=== PATIENT | female | born 1960 | race Caucasian/White ===

== ENCOUNTER → 2016-10-02 16:40 | Outpatient (CLI) | payer MEDICARE | END | disposition home or self-care (01) | LOC: D.MAMMO 09:15 | DX: Z12.31 Encounter for screening mammogram for malignant neoplasm of breast (principal) ==

== ENCOUNTER 2018-02-04 22:23 | Emergency (ER) | payer MEDICARE ==
[~2018-02-04] VITALS: Ht 167.6 cm; Wt 66.2 kg
[2018-02-04 22:32] VITALS: Ht 167.6 cm; Wt 66.2 kg
[2018-02-04] MEDS ORDERED: NEURONTIN 300300 MG (22:34)
[2018-02-04] MEDS ORDERED: ZANAFLEX4 MG PO (22:34)
[2018-02-04] MEDS ORDERED: CYMBALTA20 MG (22:34)
[2018-02-04] MEDS ORDERED: VALIUM 2 MG TAB2 MG (22:35)
[2018-02-04] MEDS ORDERED: BUTRANS1 EAC1 TRANSDERM (22:35)
[2018-02-05 00:41] VITALS: BP 151/78
== END 2018-02-05 00:23 | disposition home or self-care (01) ==
LOC: D.ER 22:23
DX: M25.551 Pain in right hip (principal); M25.561 Pain in right knee; W19.XXXA Unspecified fall, initial encounter; Y93.89 Activity, other specified; Y92.019 Unspecified place in single-family (private) house as the place of occurrence of the external cause

== ENCOUNTER 2020-12-11 11:52 | Emergency (ER) | payer MEDICARE ==
[~2020-12-11] VITALS: Ht 167.6 cm; Wt 77.3 kg
[~2020-12-11 11:52] MED LIST: BUTRANS1 EAC1 TRANSDERM; CYMBALTA20 MG; NEURONTIN 300300 MG; VALIUM 2 MG TAB2 MG; ZANAFLEX4 MG PO
[2020-12-11 12:07] VITALS: BP 111/74; Ht 167.6 cm; Wt 77.3 kg
[2020-12-11] MEDS ORDERED: MOTRIN600 MG PO (12:10)
[2020-12-11] MEDS ORDERED: ACETAMINOPHEN500 M1 PO (13:46)
[2020-12-11] MEDS ORDERED: CYCLOBENZAPRINE10 MG PO (13:46)
[2020-12-11] MEDS ORDERED: IBUPROFEN800 MG PO (13:46)
[2020-12-11] MEDS ORDERED: PENICILLIN V P500 MG PO (13:46)
[2020-12-11] MEDS ORDERED: ORAL ANALGESIC9 GM TOPICAL (13:46)
== END 2020-12-11 16:43 | disposition home or self-care (01) ==
LOC: D.ER 11:52
DX: S02.5XXA Fracture of tooth (traumatic), initial encounter for closed fracture (principal); K02.9 Dental caries, unspecified; K05.10 Chronic gingivitis, plaque induced; Z72.0 Tobacco use

== ENCOUNTER 2021-01-14 15:00 | Outpatient (CLI) | payer MEDICARE ==
[2020-12-11 12:07] VITALS: BMI 27.5
[~2021-01-14 15:00] MED LIST changes: +ACETAMINOPHEN500 M1 PO; +CYCLOBENZAPRINE10 MG PO; +IBUPROFEN800 MG PO; +MOTRIN600 MG PO; +ORAL ANALGESIC9 GM TOPICAL; +PENICILLIN V P500 MG PO
== END 2021-01-14 23:59 | disposition home or self-care (01) ==
LOC: D.MAMMO 15:00
PROVIDERS: ATTEND Family Medicine
DX: Z12.31 Encounter for screening mammogram for malignant neoplasm of breast (principal)